=== PATIENT | male | born 1985 | race Caucasian/White ===

== ENCOUNTER 2018-09-21 15:29 | Emergency (ER) | payer MEDICAID ==
[~2018-09-21] VITALS: Ht 160 cm; Wt 7.0 kg
[2018-09-21 15:36] VITALS: BP 157/102
== END 2018-09-21 16:33 | disposition home or self-care (01) ==
LOC: ER 15:30
DX: H92.03 Otalgia, bilateral (principal); Z59.0 Homelessness
CPT/HCPCS: 99281

== ENCOUNTER 2020-04-12 03:20 | Emergency (ER) | payer MEDICAID ==
[~2020-04-12] VITALS: Ht 160 cm; Wt 71.0 kg
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
[2020-04-12] MEDS ORDERED: CEPH500C5 PO (03:44)
[2020-04-12] MEDS ORDERED: SULF1TAB49 PO (03:44)
[2020-04-12] MEDS ORDERED: clindamycin phosphate 150mg/ml inj. IM ONE (03:45)
[2020-04-12 04:05] VITALS: BP 140/82
== END 2020-04-12 04:03 | disposition home or self-care (01) ==
LOC: ER 03:21
DX: L03.113 Cellulitis of right upper limb (principal); M79.601 Pain in right arm; F19.10 Other psychoactive substance abuse, uncomplicated; Z59.0 Homelessness; Z79.2 Long term (current) use of antibiotics
CPT/HCPCS: 96372; 99283; J3490